=== PATIENT | male | born 1990 | race Caucasian/White ===

== ENCOUNTER 2016-12-11 15:25 | Emergency (ER) | payer OTHER ==
[~2016-12-11] VITALS: Ht 172.7 cm; Wt 75.0 kg
[~2016-12-11 15:25] MED LIST: BUSP5TAB PO; LORTA5 PO; OCUF0.3D OS
[2016-12-11 15:26] VITALS: BP 144/73; PULSE 120; RESP 18; TEMP 97.8; O2SAT 100
[2016-12-11] MEDS ORDERED: SODIUM CHLORIDE 0.9% FLUSH 10 ML FLUSH IVF PRN (16:15)
[2016-12-11] MEDS ORDERED: PANTOPRAZOLE SODIUM 40 MG VIAL IVP ONE (16:15)
[2016-12-11] MEDS ORDERED: ALUMINUM/MAGNESIUM/SIMETH 30 ML CUP PO ONE (16:15)
[2016-12-11] MEDS ORDERED: LIDOCAINE VISCOUS 2% SOLN 15 ML UDC PO ONE (16:15)
--- NOTE | 2016-12-11 16:26 | PD ---
HPI Chief Complaint: Chest Pain Time Seen by Provider: 15:57 Travel History International Travel<30 days: No Contact w/Intl Traveler<30days: No Traveled to known affect area: No History of Present Illness HPI 26-year-old otherwise healthy male presents to the emergency room for evaluation of epigastric abdominal pain for the past 3 days. Pain is constant but worse with deep breathing. It radiates into his chest and back. He has associated shortness of breath, like he can't get enough air in. He states he has tried multiple home interventions including going for a walk, taking antacids, lying on his left side, and taking a bath without any relief in symptoms. Patient denies any medical conditions or daily medications. Denies recent immobilization, long travel, unilateral leg swelling, steroid use, hemoptysis, or recent surgery or trauma. Denies history of DVT or PE. Patient also denies fever, chills, nausea, vomiting, hematemesis, melena, hematochezia, or cough. States he has had blebs in his lungs before that ruptured but this feels different. Denies any illicit drug use. Does not smoke cigarettes. Occasional alcohol. PFSH Past Medical History Diminished Hearing: No Immunizations Current: Yes Social History Alcohol Use: No Tobacco Use: No Allergies-Medications (Allergen,Severity, Reaction): Coded Allergies: aspirin (Unverified Allergy, Intermediate, LETHARGIC, 09/20/16) Reported Meds & Prescriptions Reported Meds & Active Scripts Active Omeprazole 40 Mg Cap 40 Mg PO DAILY Vistaril (Hydroxyzine Pamoate) 25 Mg Cap 25 Mg PO Q6H PRN Floxcin (Ofloxacin) 0.3 % Soln 1 Drop OS DIRECTED Hydrocodone/Acetaminophen 5 mg/325 mg 1 Tab Tab 1 Tab PO Q4-6HPRN Reported Buspirone Hcl (Buspirone HCl) 5 Mg Tab 5 Mg PO BID Review of Systems Except as stated in HPI: all other systems reviewed are Neg Physical Exam Narrative GENERAL: Well-nourished, well-developed male in no acute distress. Afebrile. Ambulatory. SKIN: Focused skin assessment warm/dry. HEAD: Normocephalic. EYES: No scleral icterus. No injection or drainage. NECK: Supple, trachea midline. No JVD or lymphadenopathy. CARDIOVASCULAR: Regular rate and rhythm without murmurs, gallops, or rubs. RESPIRATORY: Breath sounds equal bilaterally. No accessory muscle use. No crackles, rales, wheezes, or rhonchi. GASTROINTESTINAL: Abdomen soft, non-tender, nondistended. No peritoneal signs. No rebound tenderness or guarding. Data Data Last Documented VS Vital Signs Date Time Temp Pulse Resp B/P (MAP) Pulse Ox O2 Delivery O2 Flow Rate FiO2 12/11/16 19:14 12/11/16 16:29 99 22 100 Nasal Cannula 2.00 12/11/16 16:27 98.4 Orders Orders Electrocardiogram (12/11/16 16:08) Ckmb (Isoenzyme) Profile (12/11/16 16:08) Complete Blood Count With Diff (12/11/16 16:08) Comprehensive Metabolic Panel (12/11/16 16:08) D-Dimer (12/11/16 16:08) Prothrombin Time / Inr (Pt) (12/11/16 16:08) Act Partial Throm Time (Ptt) (12/11/16 16:08) Troponin I (12/11/16 16:08) Lipase (12/11/16 16:08) Chest, Single Ap (12/11/16 16:08) Ecg Monitoring (12/11/16 16:08) Bilateral Bp Monitoring (12/11/16 16:08) Iv Access Insert/Monitor (12/11/16 16:08) Oximetry (12/11/16 16:08) Oxygen Administration (12/11/16 16:08) Sodium Chloride 0.9% Flush (Ns Flush) (12/11/16 16:15) Pantoprazole Inj (Protonix Inj) (12/11/16 16:15) Al-Mag Hy-Si 40-40-4 Mg/Ml Liq (Mag-Al P (12/11/16 16:15) Lidocaine 2% Viscous (Xylocaine 2% Visco (12/11/16 16:15) CKMB (12/11/16 16:25) CKMB% (12/11/16 16:25) Lorazepam Inj (Ativan Inj) (12/11/16 17:45) Ed Discharge Order (12/11/16 17:53) Labs Laboratory Tests Test 12/11/16 16:25 White Blood Count 9.2 TH/MM3 Red Blood Count 4.95 MIL/MM3 Hemoglobin 15.5 GM/DL Hematocrit 43.8 % Mean Corpuscular Volume 88.5 FL Mean Corpuscular Hemoglobin 31.4 PG Mean Corpuscular Hemoglobin Concent 35.5 % Red Cell Distribution Width 12.7 % Platelet Count 276 TH/MM3 Mean Platelet Volume 8.6 FL Neutrophils (%) (Auto) 74.2 % Lymphocytes (%) (Auto) 13.0 % Monocytes (%) (Auto) 11.9 % Eosinophils (%) (Auto) 0.6 % Basophils (%) (Auto) 0.3 % Neutrophils # (Auto) 6.8 TH/MM3 Lymphocytes # (Auto) 1.2 TH/MM3 Monocytes # (Auto) 1.1 TH/MM3 Eosinophils # (Auto) 0.1 TH/MM3 Basophils # (Auto) 0.0 TH/MM3 CBC Comment DIFF FINAL Differential Comment Prothrombin Time 10.9 SEC Prothromb Time International Ratio 1.0 RATIO Activated Partial Thromboplast Time 27.9 SEC D-Dimer Quantitative (PE/DVT) LESS THAN 0.19 MG/L FEU Blood Urea Nitrogen 11 MG/DL Creatinine 0.96 MG/DL Random Glucose 99 MG/DL Total Protein 8.0 GM/DL Albumin 4.5 GM/DL Calcium Level 9.4 MG/DL Alkaline Phosphatase 74 U/L Aspartate Amino Transf (AST/SGOT) 18 U/L Alanine Aminotransferase (ALT/SGPT) 25 U/L Total Bilirubin 0.4 MG/DL Sodium Level 136 MEQ/L Potassium Level 3.5 MEQ/L Chloride Level 101 MEQ/L Carbon Dioxide Level 23.7 MEQ/L Anion Gap 11 MEQ/L Estimat Glomerular Filtration Rate 95 ML/MIN Total Creatine Kinase 123 U/L Creatine Kinase MB 0.5 NG/ML Troponin I LESS THAN 0.02 NG/ML Lipase 163 U/L MDM Medical Decision Making Medical Screen Exam Complete: Yes Emergency Medical Condition: Yes Medical Record Reviewed: Yes Differential Diagnosis Gastroesophageal reflux disorder, peptic ulcer disease, coronary artery disease , pulmonary embolism, spontaneous pneumothorax Narrative Course 26-year-old otherwise healthy male presents to the emergency room for evaluation of epigastric abdominal pain radiating into the left chest and back that is worse with deep breathing. Patient is well-appearing in the emergency room. He appears slightly anxious. He is slightly tachycardic in the low 100s. Abdominal exam is benign. No peritoneal signs, rebound tenderness, or guarding. No emergent indication for imaging at this time. Lung sounds clear and equal bilaterally. Patient is 100% on room air. EKG shows sinus tachycardia with a rate of 123 beats per minute. No obvious ST changes. IV access established, basic labs obtained, and patient based on cardiac telemetry. CBC and CMP unremarkable. Troponin less than 0.02. D-dimer negative. Patient was given GI cocktail of Maalox and lidocaine. He reported immediate improvement symptoms to the nurse but upon reassessment states it did not improve his symptoms to me. He was also given IV Protonix. After reporting continued pain, patient was given Ativan. I suspect anxiety, patient has already had a panic attack in the ED including diaphoresis, palpitations, shortness breath, and crying. Patient is stable for outpatient follow-up. Diagnosis Primary Impression: Anxiety Additional Impression: GERD (gastroesophageal reflux disease) Qualified Codes: K21.9 - Gastro-esophageal reflux disease without esophagitis Referrals: Claim Taker Primary Care Physician Additional Instructions: Rest and drink plenty of fluids. Take Vistaril as directed, as needed for anxiety. Take omeprazole with food as directed. Follow-up with a primary care physician. Follow-up with GI doctor for endoscopy if symptoms persist. Return to the emergency room for worsening symptoms. Med/Other Pt SpecificInfo: Prescription(s) given Scripts Omeprazole (Omeprazole) 40 Mg Cap 40 MG PO DAILY, #30 CAP 0 Refills Prov: Shelby Barboza MD 12/11/16 Hydroxyzine Pamoate (Vistaril) 25 Mg Cap 25 MG PO Q6H Y for ANXIETY, #15 CAP 0 Refills Prov: Shelby Barboza MD 12/11/16 Disposition: 01 DISCHARGE HOME Condition: Stable Sheila Sagastume Dec 11, 2016 16:26
[2016-12-11 16:27] VITALS: BP 176/70; PULSE 105; RESP 22; TEMP 98.4; O2SAT 100
--- NOTE | 2016-12-11 16:27 | RADRPT ---
EXAM DATE/TIME: 12/11/2016 16:17 [facility] COMPARISON: No previous studies available for comparison. INDICATIONS : Chest pain. MEDICAL HISTORY : None. SURGICAL HISTORY : None. ENCOUNTER: Initial ACUITY: 2 days PAIN SCORE: 7/10 LOCATION: Left chest FINDINGS: A single view of the chest demonstrates the lungs to be symmetrically aerated without evidence of mas s, infiltrate or effusion. The cardiomediastinal contours are unremarkable. Osseous structures are intact. CONCLUSION: No evidence of acute cardiopulmonary disease. Emre Smith MD on December 11, 2016 at 16:24 Board Certified Radiologist. This report was verified electronically.
[2016-12-11 17:02] LABS: AUTOMATED NEUTROPHIL # 6.8 TH/MM3 (1.8-7.7); BASOPHIL % 0.3 % (0.0-2.0); EOSINOPHIL # 0.1 TH/MM3 (0-0.4); EOSINOPHIL % 0.6 % (0.0-4.0); HEMATOCRIT 43.8 % (39.0-51.0); HEMO FLAGS DIFF FINAL; LYMPHOCYTE # 1.2 TH/MM3 (1.0-4.8); MEAN CELL VOLUME 88.5 FL (80.0-100.0); MEAN CORPUSCULAR HEMOGLOBIN 31.4 PG (27.0-34.0); MEAN CORPUSCULAR HGB CONC 35.5 % (32.0-36.0); MONO % 11.9 % (0.0-8.0); NEUT % 74.2 % (16.0-70.0); PLATELET COUNT 276 TH/MM3 (150-450); RED BLOOD COUNT 4.95 MIL/MM3 (4.50-5.90); RED CELL DISTRIBUTION WIDTH 12.7 % (11.6-17.2); WHITE BLOOD COUNT 9.2 TH/MM3 (4.0-11.0)
[2016-12-11 17:28] LABS: ALT (GPT) 25 U/L (12-78); ANION GAP 11 MEQ/L (5-15); APTT (PATIENT) 27.9 SEC (24.3-30.1); BICARBONATE 23.7 MEQ/L (21.0-32.0); BLOOD UREA NITROGEN 11 MG/DL (7-18); CHLORIDE 101 MEQ/L (98-107); GLOMERULAR FILTRATION RATE 95 ML/MIN (>89); POTASSIUM 3.5 MEQ/L (3.5-5.1); PROTHROMBIN TIME - PATIENT 10.9 SEC (9.8-11.6); SODIUM (NA) 136 MEQ/L (136-145)
[2016-12-11 17:34] LABS: ALKALINE PHOSPHATASE 74 U/L (45-117); AST (GOT) 18 U/L (15-37); CREATINE KINASE 123 U/L (39-308); TOTAL BILIRUBIN ADULT 0.4 MG/DL (0.2-1.0)
[2016-12-11] MEDS ORDERED: LORazepam 2 MG/ML VIAL IV PUSH ONE (17:45)
[2016-12-11 17:47] LABS: CKMB 0.5 NG/ML (0.5-3.6)
[2016-12-11] MEDS ORDERED: VIST25CA PO (17:54)
[2016-12-11] MEDS ORDERED: OMEP40CA2 PO (17:54)
--- NOTE | 2016-12-11 21:13 | EKG ---
Date Performed: 12/11/2016 Time Performed: 15:40:47 PTAGE: 26 years EKG: SINUS TACHYCARDIA NONSPECIFIC ST & T-WAVE ABNORMALITY ABNORMAL RHYTHM ECG NO PREVIOUS TRACING DOCTOR: Al Means Interpretating Date/Time 12/11/2016 21:11:27
== END 2016-12-11 19:16 | disposition home or self-care (01) ==
LOC: NEPC 15:25
DX: F41.9 Anxiety disorder, unspecified (principal); K21.9 Gastro-esophageal reflux disease without esophagitis; R10.13 Epigastric pain; R06.02 Shortness of breath; R00.0 Tachycardia, unspecified; R94.31 Abnormal electrocardiogram [ECG] [EKG]; Z79.899 Other long term (current) drug therapy
CPT/HCPCS: 71010; 80053; 82550; 82552; 83690; 84484; 85025; 85379; 85610; 85730; 93005; 96374; 96375; 99285; C9113; J2060